=== PATIENT | female | born 1970 | race Caucasian/White ===

== ENCOUNTER 2018-03-12 18:55 | Emergency (ER) | payer BC ==
[~2018-03-12] VITALS: Ht 175.3 cm; Wt 100.7 kg
[~2018-03-12 18:55] MED LIST: ASPIRIN325 PO; CALAN80 MG PO; CLONAZEPAM 1 MG1 M1 PO; COLACE100 MG PO; CYTOMEL 25 MCG25 MC1 PO; DESYREL300 MG PO; ELIQUIS2.5 MG PO; HYDROXYZINE HCL25 M1 PO; IMITREX100 MG PO; LOMOTIL 2.5-0.01 TAB PO; METAMUCIL1 EAC1 PO; MOBIC15 MG PO; MUPIROCIN1 GM TP; NEURONTIN300 MG PO; NEURONTIN600 MG PO; OMEPRAZOLE40 MG PO; PHENERGAN 25 MG25 M1 PO; PRILOSEC 20 MG20 MG PO; PROZAC40 MG PO; QVAR8.7 G1 INH; TORADOL 10 MG T10 MG PO; TRIAMCINOLONE A80 G2 TOP; VALIUM5 MG PO; VENTOLIN HFA 1818 GM INH; XARELTO10 MG PO
[2018-03-12 20:35] VITALS: BP 164/62
== END 2018-03-12 20:36 | disposition home or self-care (01) ==
LOC: M.ERS 18:55
DX: G43.009 Migraine without aura, not intractable, without status migrainosus (principal); K21.9 Gastro-esophageal reflux disease without esophagitis; J45.909 Unspecified asthma, uncomplicated; Z88.1 Allergy status to other antibiotic agents; Z88.0 Allergy status to penicillin; Z91.041 Radiographic dye allergy status; Z88.8 Allergy status to other drugs, medicaments and biological substances; Z88.5 Allergy status to narcotic agent; Z88.6 Allergy status to analgesic agent; Z90.49 Acquired absence of other specified parts of digestive tract